=== PATIENT | male | born 1940 | race Caucasian/White ===

== ENCOUNTER 2019-12-29 08:46 | Day surgery (SDC) | payer MEDICARE ==
[2019-12-26 15:48] LABS: BASOPHILS % (AUTO) 0.6 % (0.0-5.0); EOSINOPHILS % (AUTO) 2.9 % (0.0-8.0); HEMATOCRIT 39.3 % (42-54); LYMPHOCYTES % (AUTO) 32.8 % (21.0-51.0); MEAN CORPUSCULAR HEMOGLOBIN 29.7 pg (27.0-33.0); MEAN CORPUSCULAR HGB CONC 32.3 g/dL (32.0-36.0); MONOCYTES % (AUTO) 7.6 % (3.0-13.0); NEUTROPHILS % (AUTO) 55.9 % (40.0-77.0); PLATELET COUNT (AUTO) 249 K/uL (130-400); RED BLOOD CELL COUNT(AUTO) 4.27 MIL/uL (4.50-6.20); RED CELL DISTRIBUTION WIDTH 14.5 % (11.0-15.5); WHITE BLOOD COUNT (AUTO) 5.1 K/uL (4.8-10.8)
[2019-12-26 15:53] VITALS: BP_SYST 85; BP_SYST 94; BP_DIAS 54; BP_DIAS 55
[2019-12-26 16:02] LABS: INR 1.1 (0.85-1.15); PARTIAL THROMBOPLASTIN TIME 30.4 SEC (26.3-35.5); PROTHROMBIN TIME 11.5 SEC (9.6-11.6)
[2019-12-26 16:06] LABS: CREATININE 1.3 mg/dL (0.5-1.5); POTASSIUM 4.3 mmol/L (3.5-5.1)
--- NOTE | 2019-12-26 16:27 | NUR ---
BP INFORMED DR. JOSHUA BANKS ASST OF PTS BP 85/45. PT DENIES DIZZINESS, LIGHT HEADEDNESS. SHE WILL INFORM DR. PHAM AND CALL ME BACK. Addendum: 12/26/19 at 1712 by HOMER MALDONADO RN RN INSTRUCTED PT SHE CAN TAKE HIM TO ER FOR FURTHER EVALUATION. PTS DENIED ER. EDUCATED PT AND PTS TO MONITOR BP AND IF PT FEELS WORSE, REPORT TO ER. BOTH VERBALIZED UNDERSTANDING.
--- NOTE | 2019-12-26 16:39 | NUR ---
EKG INFORMED DR. DUNCAN OF EKG. NO ORDERS RECEIVED. PROCEED WITH PLANNED PROCEDURE.
[2019-12-26 17:36] LABS: BILIRUBIN,URINE SMALL (NEGATIVE); COLOR,URINE YELLOW (YELLOW); GLUCOSE, URINE (UA) 100 mg/dL (NEGATIVE); KETONES,URINE 5 mg/dL (NEGATIVE); LEUKOCYTE ESTERASE ,URINE TRACE (NEGATIVE); NITRATE,URINE NEGATIVE (NEGATIVE); OCCULT BLOOD,URINE LARGE (NEGATIVE); PROTEIN,URINE 100 mg/dL (NEGATIVE)
[2019-12-26 17:51] LABS: APPEARANCE,URINE CLOUDY (CLEAR)
[2019-12-26 18:08] LABS: BACTERIA,URINE Few /HPF (None Seen); RBC,URINE 26-50 /HPF (0-1); SQUAMOUS EPITHELIAL CELL,UR 0-2 /HPF (0-2)
--- NOTE | 2019-12-28 16:56 | NUR ---
CALLED DR. PHAM OFFICE REPORTED ABNORMAL LABS PER RADHA NO NEW ORDERS AT THIS TIME, OK TO PROCEED.
[2019-12-29] VITALS (13 sets, daily range): BP systolic 106–118; BP diastolic 58–83
[~2019-12-29] VITALS: Ht 175.3 cm; Wt 87.5 kg
[~2019-12-29 08:46] MED LIST: ACET-66 PO; APIX5TAB PO; GENTAMICIN SULFATE IV SCH; HYDR25TA PO; LOSA100T58 PO; ROSU5TAB12 PO; SODIUM CHLORIDE 0.9% IV SCH; TAMS-1 PO; VERA120T13 PO
[2019-12-29] MEDS ORDERED: LACTATED RINGERS 1000ML 1,000 ML IV ONE (09:41)
[2019-12-29] MEDS: CEFTRIAXONE SODIUM 1 GM IVP SCH ×2 (10:00→11:02)
[2019-12-29] MEDS ORDERED: ROCURONIUM 10MG/1ML SYR 10 MG/ML ML ONE (10:59)
[2019-12-29] MEDS ORDERED: PROPOFOL 10 MG/ML 20ML VIAL IV ONE (10:59)
[2019-12-29] MEDS ORDERED: LIDOCAINE PF 2% 5ML ABBOJECT ONE (10:59)
[2019-12-29] MEDS ORDERED: FENTANYL CITRATE PF 50 MCG/1 ML 2ML VIAL ONE ×2 (11:01→11:44)
[2019-12-29] MEDS ORDERED: ONDANSETRON HCL 4 MG/2 ML VIAL ONE (11:31)
[2019-12-29] MEDS ORDERED: GLYCOPYRROLATE 1 MG/5 ML SYRINGE ONE (12:19)
[2019-12-29] MEDS ORDERED: NEOSTIGMINE 5MG/5ML SYR IV ONE (12:19)
--- NOTE | 2019-12-29 14:34 | NUR ---
PT LEFT VIA WHEELCHAIR IN PVT D/C INSTRUCTIONS GIVEN TO , ALONG WITH RX SCRIPT AND DIAS INSTRUCTIONS. DIAS PATENT, CLEAR URINE, V.S STABLE NO COMPLICATION UPON D.C
== END 2019-12-29 14:15 | disposition home or self-care (01) ==
LOC: DAH 08:46
PROVIDERS: ATTEND Urology
DX: N40.1 Benign prostatic hyperplasia with lower urinary tract symptoms (principal); R33.9 Retention of urine, unspecified; I10 Essential (primary) hypertension; I48.91 Unspecified atrial fibrillation; E78.5 Hyperlipidemia, unspecified; Z96.659 Presence of unspecified artificial knee joint; Z96.652 Presence of left artificial knee joint
CPT/HCPCS: 36415; 52648; 71045; 80048; 81001; 85025; 85610; 85730; 87077; 87088; 87186; 93005; A4213; A4215; A4221; A4222; A4223 ×2; A4354; A4495; A4600; A4663; A6260; C1758; J0696; J1580; J2001; J2405; J2704; J2710; J3010 ×2; J3490; J7030; J7120; 96365